=== PATIENT | female | born 1995 | race Hispanic/Latino ===

== ENCOUNTER 2017-02-22 22:05 | Emergency (ER) | payer OTHER ==
[~2017-02-22] VITALS: Ht 154.9 cm; Wt 70.4 kg
[~2017-02-22 22:05] MED LIST: AMOXICILLIN500 MG OR; DEP0PROVERA; LORTAB 5 OR; PAROXETINE OR; PEPTO BISMOL30 ML OR; PRENATAL1 TA1; PREVACID30 M1 OR; PROPRANOLO40 MG/5 ML OR; RANITIDINE150 M1 OR
[2017-02-22 23:06] LABS: HEMATOCRIT 35.4 % (37.0-47.0); HEMOGLOBIN 11.7 g/dl (12.0-16.0); IMMATURE GRANULOCYTES 0.2 % (0.0-1.0); MEAN CELL VOLUME 87.4 fL CALC (80.0-100.0); MEAN CORPUSCULAR HGB 28.9 pG CALC (26.0-32.0); MEAN CORPUSCULAR HGB CONC 33.1 g/L CALC (32.0-36.0); NEUT# 2.19 thou/uL (2.00-7.15); RED BLOOD COUNT 4.05 mill/uL (4.20-5.60); RED CELL DISTRI WIDTH 13.4 % (11.5-15.5)
[2017-02-22 23:22] LABS: BARBITURATES NEGATIVE (NEGATIVE); COCAINE NEGATIVE (NEGATIVE); METHADONE NEGATIVE (NEGATIVE); TETRAHYDROCANNABIONOL NEGATIVE (NEGATIVE); TRICYLIC ANTIDEPRESSANTS NEGATIVE (NEGATIVE); URINE BILIRUBIN - DIPSTICK NEGATIVE (NEGATIVE); URINE BLOOD DIPSTICK LARGE (NEGATIVE); URINE CLARITY CLEAR; URINE COLOR YELLOW; URINE GLUCOSE - DIPSTICK NEGATIVE (NEGATIVE); URINE KETONE NEGATIVE (NEGATIVE); URINE LEUK ESTERASE NEGATIVE (NEGATIVE); URINE NITRITE - DIPSTICK NEGATIVE (Negative); URINE PROTEIN - DIPSTICK NEGATIVE (NEG-TRACE); URINE SPECIFIC GRAVITY 1.015; URINE UROBILINOGEN - DIPSTICK 0.2 E.U./dL (0.2)
[2017-02-22 23:23] LABS: OXCYCODONE NEGATIVE (NEGATIVE)
[2017-02-22 23:33] LABS: URINE BACTERIA FEW hpf; URINE MUCUS MODERATE hpf (NONE-FEW); URINE SQUAMOUS EPITHELIAL CELL MODERATE EPI/hpf (0-FEW)
[2017-02-22 23:40] LABS: ALBUMIN 3.9 g/dL (3.2-5.0); ALKALINE PHOSPHATASE 55 u/l (38-126); AMYLASE 50 u/l (30-110); ANION GAP 16 (6-22 (CALC)); BILIRUBIN, TOTAL 0.5 mg/dL (0.0-1.4); BUN 12 mg/dL (7-17); BUN/CREATININE RATIO 20 (12-20 (CALC)); CALCIUM 9.2 mg/dL (8.4-10.2); CARBON DIOXIDE 24 mmol/l (22-30); CHLORIDE 106 mmol/l (95-108); CREATININE 0.6 mg/dL (0.5-1.0); ETHYL ALCOHOL 0 mg/dl (0-30); GFR > 60 ML/MIN (>=60 (CALC)); GFR FOR AFR.AMER. > 60 ML/MIN (>=60 (CALC)); GLUCOSE 83 mg/dL (65-105); LIPASE 65 u/l (23-300); POTASSIUM 3.4 mmol/l (3.5-5.1); SGOT/AST 19 u/l (14-36); SGPT/ALT 30 u/l (9-52); SODIUM 143 mmol/l (137-146); TOTAL PROTEIN 6.6 g/dL (6.3-8.2)
[2017-02-22 23:51] LABS: MYOGLOBIN 20 ng/mL (0 - 62)
[2017-02-23 00:50] VITALS: BP 124/69
== END 2017-02-23 00:50 | disposition home or self-care (01) | DRG 880 ==
LOC: ED 22:05
PROVIDERS: Emergency Medicine
DX: F41.0 Panic disorder [episodic paroxysmal anxiety] (principal)

== ENCOUNTER 2017-03-05 13:20 | Emergency (ER) | payer OTHER ==
[~2017-03-05] VITALS: Ht 154.9 cm; Wt 70.0 kg
[2017-03-05] MEDS ORDERED: XANAX0.25 MG PO (13:39)
[2017-03-05 13:56] VITALS: BP 138/80
== END 2017-03-05 14:00 | disposition home or self-care (01) | DRG 880 ==
LOC: ED 13:20
DX: F41.0 Panic disorder [episodic paroxysmal anxiety] (principal); R42 Dizziness and giddiness; R20.0 Anesthesia of skin

== ENCOUNTER 2018-05-08 10:52 | Emergency (ER) | payer OTHER ==
[~2018-05-08] VITALS: Ht 154.9 cm; Wt 71.8 kg
[~2018-05-08 10:52] MED LIST changes: +XANAX0.25 MG PO
[2018-05-08] MEDS ORDERED: AMOXICILLIN875 MG PO (12:11)
[2018-05-08] MEDS ORDERED: TESSALON PER100 MG PO (12:16)
[2018-05-08 12:25] VITALS: BP 107/70
== END 2018-05-08 12:25 | disposition home or self-care (01) ==
LOC: ED 10:52
DX: J10.1 Influenza due to other identified influenza virus with other respiratory manifestations (principal); J02.9 Acute pharyngitis, unspecified; R50.9 Fever, unspecified; R05 Cough; R51 Headache

== ENCOUNTER 2018-10-04 10:18 | Emergency (ER) | payer OTHER ==
[~2018-10-04] VITALS: Ht 154.9 cm; Wt 80.0 kg
[~2018-10-04 10:18] MED LIST changes: +AMOXICILLIN875 MG PO; +TESSALON PER100 MG PO
[2018-10-04 10:54] LABS: HEMATOCRIT 35.9 % (37.0-47.0); HEMOGLOBIN 11.4 g/dl (12.0-16.0); IMMATURE GRANULOCYTES 0.2 % (0.0-5.0); MEAN CORPUSCULAR HGB 25.6 pG CALC (26.0-32.0); MEAN CORPUSCULAR HGB CONC 31.8 g/L CALC (32.0-36.0); NEUT# 2.33 thou/uL (2.00-7.15); RED BLOOD COUNT 4.45 mill/uL (4.20-5.60); RED CELL DISTRI WIDTH 13.9 % (11.5-15.5)
[2018-10-04 10:59] LABS: MEAN CELL VOLUME 80.7 fL CALC (80.0-100.0)
[2018-10-04 11:11] LABS: ANION GAP 12 (6-22 (CALC)); BUN 7 mg/dL (7-17); BUN/CREATININE RATIO 16 (12-20 (CALC)); CARBON DIOXIDE 20 mmol/l (22-30); CHLORIDE 110 mmol/l (95-108); CREATININE 0.4 mg/dL (0.5-1.0); GFR > 60 ML/MIN (>=60 (CALC)); GFR FOR AFR.AMER. > 60 ML/MIN (>=60 (CALC)); POTASSIUM 3.5 mmol/l (3.5-5.1); SODIUM 137 mmol/l (137-146)
[2018-10-04 11:11] LABS: URINE BILIRUBIN - DIPSTICK NEGATIVE (NEGATIVE); URINE BLOOD DIPSTICK TRACE-INTACT (NEGATIVE); URINE COLOR YELLOW; URINE GLUCOSE - DIPSTICK NEGATIVE (NEGATIVE); URINE KETONE NEGATIVE (NEGATIVE); URINE LEUK ESTERASE NEGATIVE (NEGATIVE); URINE NITRITE - DIPSTICK NEGATIVE (Negative); URINE PROTEIN - DIPSTICK NEGATIVE (NEG-TRACE); URINE SPECIFIC GRAVITY >=1.030; URINE UROBILINOGEN - DIPSTICK 0.2 E.U./dL (0.2)
[2018-10-04 11:54] LABS: BETA-HCG, QUANT(RESULT NUMBER) 30455 mIU/mL
[2018-10-04 13:01] VITALS: BP 120/58
== END 2018-10-04 13:10 | disposition home or self-care (01) ==
LOC: ED 10:18
PROVIDERS: Family Medicine
DX: O26.851 Spotting complicating pregnancy, first trimester (principal); Z3A.01 Less than 8 weeks gestation of pregnancy; R10.32 Left lower quadrant pain; R10.31 Right lower quadrant pain

== ENCOUNTER 2018-12-02 09:44 | Emergency (ER) | payer OTHER ==
[~2018-12-02] VITALS: Ht 154.9 cm; Wt 77.2 kg
[2018-12-02 10:39] LABS: URINE BLOOD DIPSTICK NEGATIVE (NEGATIVE); URINE COLOR YELLOW; URINE GLUCOSE - DIPSTICK NEGATIVE (NEGATIVE); URINE KETONE NEGATIVE (NEGATIVE); URINE LEUK ESTERASE NEGATIVE (NEGATIVE); URINE NITRITE - DIPSTICK NEGATIVE (Negative); URINE PH 6.5 (4.5-8.0); URINE PROTEIN - DIPSTICK NEGATIVE (NEG-TRACE); URINE SPECIFIC GRAVITY 1.025
[2018-12-02 10:44] LABS: URINE BILIRUBIN - DIPSTICK NEGATIVE (NEGATIVE)
[2018-12-02 11:12] VITALS: BP 107/52
== END 2018-12-02 11:12 | disposition home or self-care (01) ==
LOC: ED 09:44
PROVIDERS: Family Medicine
DX: S09.90XA Unspecified injury of head, initial encounter (principal); S30.0XXA Contusion of lower back and pelvis, initial encounter; W01.0XXA Fall on same level from slipping, tripping and stumbling without subsequent striking against object, initial encounter; Y93.89 Activity, other specified; Z33.1 Pregnant state, incidental

== ENCOUNTER 2019-02-20 06:08 | Emergency (ER) | payer OTHER ==
[~2019-02-20] VITALS: Ht 154.9 cm; Wt 80.0 kg
[2019-02-20 07:00] LABS: HEMATOCRIT 30.5 % (37.0-47.0); HEMOGLOBIN 9.7 g/dl (12.0-16.0); IMMATURE GRANULOCYTES 0.2 % (0.0-5.0); MEAN CELL VOLUME 79.6 fL CALC (80.0-100.0); MEAN CORPUSCULAR HGB 25.3 pG CALC (26.0-32.0); MEAN CORPUSCULAR HGB CONC 31.8 g/L CALC (32.0-36.0); NEUT# 3.21 thou/uL (2.00-7.15); RED BLOOD COUNT 3.83 mill/uL (4.20-5.60); RED CELL DISTRI WIDTH 13.7 % (11.5-15.5); URINE BILIRUBIN - DIPSTICK NEGATIVE (NEGATIVE); URINE BLOOD DIPSTICK TRACE-INTACT (NEGATIVE); URINE COLOR YELLOW; URINE GLUCOSE - DIPSTICK NEGATIVE (NEGATIVE); URINE KETONE NEGATIVE (NEGATIVE); URINE LEUK ESTERASE NEGATIVE (NEGATIVE); URINE NITRITE - DIPSTICK NEGATIVE (Negative); URINE PROTEIN - DIPSTICK NEGATIVE (NEG-TRACE); URINE SPECIFIC GRAVITY 1.015; URINE UROBILINOGEN - DIPSTICK 0.2 E.U./dL (0.2)
[2019-02-20 07:10] LABS: ALBUMIN 3.4 g/dL (3.2-5.0); ALKALINE PHOSPHATASE 78 u/l (38-126); ANION GAP 14 (6-22 (CALC)); BILIRUBIN, TOTAL 0.3 mg/dL (0.0-1.4); BUN 4 mg/dL (7-17); BUN/CREATININE RATIO 10 (12-20 (CALC)); CARBON DIOXIDE 20 mmol/l (22-30); CHLORIDE 110 mmol/l (95-108); CREATININE 0.4 mg/dL (0.5-1.0); GFR > 60 ML/MIN (>=60 (CALC)); GFR FOR AFR.AMER. > 60 ML/MIN (>=60 (CALC)); SGOT/AST 18 u/l (14-36); SODIUM 139 mmol/l (137-146); TOTAL PROTEIN 6.7 g/dL (6.3-8.2)
[2019-02-20 08:15] VITALS: BP 102/59
== END 2019-02-20 08:22 | disposition home or self-care (01) ==
LOC: ED 06:08
PROVIDERS: Family Medicine
DX: O26.892 Other specified pregnancy related conditions, second trimester (principal); S31.41XA Laceration without foreign body of vagina and vulva, initial encounter; X58.XXXA Exposure to other specified factors, initial encounter; Z3A.26 26 weeks gestation of pregnancy

== ENCOUNTER 2019-06-26 | Emergency (ER) | payer OTHER ==
[2019-06-26 12:12] LABS: URINE BILIRUBIN - DIPSTICK NEGATIVE (NEGATIVE); URINE BLOOD DIPSTICK NEGATIVE (NEGATIVE); URINE COLOR YELLOW; URINE GLUCOSE - DIPSTICK NEGATIVE (NEGATIVE); URINE KETONE NEGATIVE (NEGATIVE); URINE LEUK ESTERASE NEGATIVE (NEGATIVE); URINE NITRITE - DIPSTICK NEGATIVE (Negative); URINE PH 6.5 (4.5-8.0); URINE PROTEIN - DIPSTICK NEGATIVE (NEG-TRACE); URINE SPECIFIC GRAVITY <=1.005; URINE UROBILINOGEN - DIPSTICK 0.2 E.U./dL (0.2)
[2019-06-26 12:14] LABS: BARBITURATES NEGATIVE (NEGATIVE); COCAINE NEGATIVE (NEGATIVE); METHADONE NEGATIVE (NEGATIVE); OXCYCODONE NEGATIVE (NEGATIVE); TETRAHYDROCANNABIONOL NEGATIVE (NEGATIVE); TRICYLIC ANTIDEPRESSANTS NEGATIVE (NEGATIVE)
== END 2019-06-26 14:24 | disposition home or self-care (01) ==
DX: R51 Headache (principal); R53.1 Weakness

== ENCOUNTER 2020-05-17 21:38 | Emergency (ER) | payer OTHER ==
[~2020-05-17] VITALS: Ht 154.9 cm; Wt 75.5 kg
[2020-05-17 21:41] VITALS: BP 120/70
[2020-05-17 22:17] LABS: URINE BILIRUBIN - DIPSTICK NEGATIVE (NEGATIVE); URINE BLOOD DIPSTICK MODERATE (NEGATIVE); URINE COLOR YELLOW; URINE GLUCOSE - DIPSTICK NEGATIVE (NEGATIVE); URINE KETONE NEGATIVE (NEGATIVE); URINE LEUK ESTERASE NEGATIVE (NEGATIVE); URINE NITRITE - DIPSTICK NEGATIVE (Negative); URINE PROTEIN - DIPSTICK NEGATIVE (NEG-TRACE); URINE UROBILINOGEN - DIPSTICK 0.2 E.U./dL (0.2)
[2020-05-17 22:30] LABS: URINE SQUAMOUS EPITHELIAL CELL FEW EPI/hpf (0-FEW); URINE WBC 0-2 WBC/hpf (0-5)
== END 2020-05-17 22:57 | disposition home or self-care (01) ==
LOC: ED 21:38
DX: Z32.02 Encounter for pregnancy test, result negative (principal)

== ENCOUNTER 2020-06-19 18:42 | Emergency (ER) | payer OTHER ==
[~2020-06-19] VITALS: Ht 154.9 cm; Wt 77.3 kg
[2020-06-19 19:57] LABS: URINE BILIRUBIN - DIPSTICK NEGATIVE (NEGATIVE); URINE BLOOD DIPSTICK MODERATE (NEGATIVE); URINE COLOR YELLOW; URINE GLUCOSE - DIPSTICK NEGATIVE (NEGATIVE); URINE KETONE NEGATIVE (NEGATIVE); URINE NITRITE - DIPSTICK NEGATIVE (Negative); URINE PH 6.5 (4.5-8.0); URINE PROTEIN - DIPSTICK NEGATIVE (NEG-TRACE); URINE UROBILINOGEN - DIPSTICK 0.2 E.U./dL (0.2)
[2020-06-19 19:59] LABS: URINE LEUK ESTERASE MODERATE (NEGATIVE)
[2020-06-19 20:07] LABS: URINE SQUAMOUS EPITHELIAL CELL FEW EPI/hpf (0-FEW); URINE WBC 20-50 WBC/hpf (0-5)
[2020-06-19] MEDS ORDERED: BACTRIM DS1 TAB PO (20:27)
[2020-06-19] MEDS ORDERED: PYRIDIUM200 MG PO (20:28)
[2020-06-19 20:45] VITALS: BP 123/78
== END 2020-06-19 20:45 | disposition home or self-care (01) ==
LOC: ED 18:42
DX: N39.0 Urinary tract infection, site not specified (principal); B96.20 Unspecified Escherichia coli [E. coli] as the cause of diseases classified elsewhere

== ENCOUNTER 2021-07-05 20:18 | Emergency (ER) | payer OTHER ==
[~2021-07-05] VITALS: Ht 154.9 cm; Wt 70.0 kg
[~2021-07-05 20:18] MED LIST changes: +BACTRIM DS1 TAB PO; +PYRIDIUM200 MG PO
[2021-07-05 21:15] LABS: HEMATOCRIT 39.3 % (37.0-47.0); HEMOGLOBIN 12.8 g/dl (12.0-16.0); IMMATURE GRANULOCYTES 0.2 % (0.0-5.0); MEAN CELL VOLUME 90.3 fL CALC (80.0-100.0); MEAN CORPUSCULAR HGB 29.4 pG CALC (26.0-32.0); MEAN CORPUSCULAR HGB CONC 32.6 g/dL CAL (32.0-36.0); NEUT# 2.31 thou/uL (2.00-7.15); RED BLOOD COUNT 4.35 mill/uL (4.20-5.60)
[2021-07-05 21:34] LABS: ANION GAP 15 (6-22 (CALC)); BUN 10 mg/dL (7-17); BUN/CREATININE RATIO 17 (12-20 (CALC)); CARBON DIOXIDE 23 mmol/l (22-30); CHLORIDE 106 mmol/l (95-108); CREATININE 0.6 mg/dL (0.5-1.0); GFR > 60 ML/MIN (>=60 (CALC)); GFR FOR AFR.AMER. > 60 ML/MIN (>=60 (CALC)); POTASSIUM 3.8 mmol/l (3.5-5.1); SGOT/AST 29 u/l (14-36); SODIUM 140 mmol/l (137-146)
[2021-07-05 21:45] LABS: URINE BILIRUBIN - DIPSTICK NEGATIVE (NEGATIVE); URINE BLOOD DIPSTICK NEGATIVE (NEGATIVE); URINE COLOR YELLOW; URINE GLUCOSE - DIPSTICK NEGATIVE (NEGATIVE); URINE KETONE NEGATIVE (NEGATIVE); URINE LEUK ESTERASE NEGATIVE (NEGATIVE); URINE PROTEIN - DIPSTICK NEGATIVE (NEG-TRACE); URINE SPECIFIC GRAVITY 1.025; URINE UROBILINOGEN - DIPSTICK 0.2 E.U./dL (0.2)
[2021-07-05 21:46] LABS: MYOGLOBIN 19 ng/mL (0 - 62)
[2021-07-05 21:47] LABS: URINE NITRITE - DIPSTICK NEGATIVE (Negative)
[2021-07-05 21:48] LABS: ALBUMIN 4.2 g/dL (3.2-5.0); ALKALINE PHOSPHATASE 58 u/l (38-126); BILIRUBIN, TOTAL 0.3 mg/dL (0.0-1.4); TOTAL PROTEIN 7.6 g/dL (6.3-8.2)
[2021-07-05 22:23] VITALS: BP 104/57
== END 2021-07-05 22:28 | disposition home or self-care (01) ==
LOC: ED 20:18
PROVIDERS: Family Medicine
DX: R42 Dizziness and giddiness (principal); R53.1 Weakness

== ENCOUNTER 2022-05-01 17:24 | Emergency (ER) | payer OTHER ==
[2022-05-01] VITALS (11 sets, daily range): BP systolic 100–129; BP diastolic 57–79
[~2022-05-01] VITALS: Ht 154.9 cm; Wt 80.0 kg
[2022-05-01 19:19] LABS: HEMATOCRIT 42.8 % (37.0-47.0); HEMOGLOBIN 14.5 g/dl (12.0-16.0); MEAN CELL VOLUME 88.1 fL CALC (80.0-100.0); MEAN CORPUSCULAR HGB 29.8 pG CALC (26.0-32.0); MEAN CORPUSCULAR HGB CONC 33.9 g/dL CAL (32.0-36.0); NEUT# 2.66 thou/uL (2.00-7.15); RED BLOOD COUNT 4.86 mill/uL (4.20-5.60); RED CELL DISTRI WIDTH 12.7 % (11.5-15.5)
[2022-05-01 19:30] LABS: ALBUMIN 4.8 g/dL (3.2-5.0); ALKALINE PHOSPHATASE 72 u/l (38-126); ANION GAP 16 (6-22 (CALC)); BILIRUBIN, TOTAL 0.4 mg/dL (0.0-1.4); BUN 9 mg/dL (7-17); BUN/CREATININE RATIO 14 (12-20 (CALC)); CARBON DIOXIDE 23 mmol/l (22-30); CHLORIDE 107 mmol/l (95-108); CREATININE 0.6 mg/dL (0.5-1.0); GFR FOR AFR.AMER. > 60 ML/MIN (>=60 (CALC)); GFR OTHER RACES > 60 ML/MIN (>=60 (CALC)); POTASSIUM 4.2 mmol/l (3.5-5.1); SGOT/AST 34 u/l (14-36); SODIUM 142 mmol/l (137-146); TOTAL PROTEIN 8.5 g/dL (6.3-8.2)
[2022-05-01 20:01] LABS: TSH, 3RD GENERATION 0.86 uIU/mL (0.47 - 4.68)
== END 2022-05-01 21:40 | disposition home or self-care (01) ==
LOC: ED 17:24
PROVIDERS: Family Medicine
DX: R00.2 Palpitations (principal)

== ENCOUNTER 2023-04-03 09:12 | Emergency (ER) | payer SELFPAY ==
[2023-04-03] VITALS (9 sets, daily range): BP systolic 97–110; BP diastolic 47–74
[~2023-04-03] VITALS: Ht 154.9 cm; Wt 86.0 kg
== END 2023-04-03 11:15 | disposition home or self-care (01) | DRG 999 ==
LOC: ED 09:12
PROC: 2W3CX1Z Immobilization of Right Lower Arm using Splint (ICD-10-PCS; principal; 2023-04-03)
DX: O9A.211 Injury, poisoning and certain other consequences of external causes complicating pregnancy, first trimester (principal); S52.501A Unspecified fracture of the lower end of right radius, initial encounter for closed fracture; W17.89XA Other fall from one level to another, initial encounter; Z3A.08 8 weeks gestation of pregnancy

== ENCOUNTER 2023-07-18 19:48 | Emergency (ER) | payer OTHER ==
[~2023-07-18] VITALS: Ht 154.9 cm; Wt 85.0 kg
[2023-07-18] MEDS ORDERED: PRENATA3 PO (19:56)
[2023-07-18 21:15] VITALS: BP 123/78
== END 2023-07-18 21:08 | disposition home or self-care (01) | DRG 833 ==
LOC: ED 19:48
DX: O26.899 Other specified pregnancy related conditions, unspecified trimester (principal); R05.9 Cough, unspecified; M79.10 Myalgia, unspecified site; Z3A.00 Weeks of gestation of pregnancy not specified

== ENCOUNTER 2024-04-14 21:04 | Emergency (ER) | payer OTHER ==
[~2024-04-14] VITALS: Ht 154.9 cm; Wt 79.0 kg
[~2024-04-14 21:04] MED LIST changes: +PRENATA3 PO
[2024-04-14 22:20] LABS: URINE BILIRUBIN - DIPSTICK Negative (NEGATIVE); URINE BLOOD DIPSTICK Large (NEGATIVE); URINE GLUCOSE - DIPSTICK Negative (NEGATIVE); URINE KETONE Negative (NEGATIVE); URINE LEUK ESTERASE Negative (NEGATIVE); URINE NITRITE - DIPSTICK Negative (Negative); URINE PH 6.5 (4.5-8.0); URINE PROTEIN - DIPSTICK Negative (NEG-TRACE); URINE SPECIFIC GRAVITY 1.025; URINE UROBILINOGEN - DIPSTICK 0.2 E.U./dL (0.2)
[2024-04-14 22:21] LABS: URINE COLOR Yellow
[2024-04-14 22:32] LABS: URINE SQUAMOUS EPITHELIAL CELL FEW EPI/hpf (0-FEW)
[2024-04-15 00:50] VITALS: BP 133/73
== END 2024-04-15 00:50 | disposition left against medical advice (07) | DRG 204 ==
LOC: ED 21:04
PROVIDERS: Internal Medicine
DX: R05.9 Cough, unspecified (principal); R51.9 Headache, unspecified; R42 Dizziness and giddiness; R00.2 Palpitations; Z20.822 Contact with and (suspected) exposure to COVID-19; Z53.29 Procedure and treatment not carried out because of patient's decision for other reasons

== ENCOUNTER 2024-06-20 08:53 | Emergency (ER) | payer OTHER ==
[~2024-06-20] VITALS: Ht 154.9 cm; Wt 82.0 kg
[2024-06-20] MEDS ORDERED: TAM75CAP PO (09:47)
[2024-06-20 09:51] VITALS: BP 117/78
== END 2024-06-20 09:57 | disposition home or self-care (01) | DRG 153 ==
LOC: ED 08:53
DX: J11.1 Influenza due to unidentified influenza virus with other respiratory manifestations (principal); Z20.822 Contact with and (suspected) exposure to COVID-19